=== PATIENT | female | born 1965 | race African-American/Black ===

== ENCOUNTER 2020-11-19 10:55 | Observation (INO) ==
[2020-11-19] MEDS ORDERED: ONDANSETRON 4 MG/2 ML VIAL IV STA (11:38)
[2020-11-19] MEDS ORDERED: MORPHINE 4 MG/1 ML VIAL IV STA (11:38)
[2020-11-19] MEDS ORDERED: NITROGLYCERIN 2% OINT 1 INCH/GM PACK TOP STA (11:38)
[2020-11-19] MEDS ORDERED: ASPIRIN CHEW 81 MG TABLET PO STA (11:38)
[2020-11-19] MEDS ORDERED: ENOXAPARIN 100 MG/ML SYRINGE SUBCUT STA (11:39)
[2020-11-19 11:42] LABS: Basophils % 0.1 % (0.0-0.8); Eosinophils # 0.1 10*3/uL (0.0-0.87); Eosinophils % 1.1 % (0.00-10.9); Hematocrit 39.9 VOL% (35.7-47.0); Hemoglobin 12.1 GM/DL (12.0-16.0); Immature Granulocytes Absolute 0.15 #; Lymphocytes # 2.1 10*3/uL (1.4-4.0); Lymphocytes % 28.2 % (21.3-54.2); Mean Corpuscular HGB Conc 30.3 GM/DL (32-36); Mean Corpuscular Volume 95.9 FL (87-102); Mean Platelet Volume 9.3 FL (9.6-12.0); Monocytes % 8.7 % (1.7-12.7); NRBC # 0.04 10*3/uL; Neutrophils % 59.9 % (38.7-73.9); Platelet Count 263 T/CUMM (130-400); Red Blood Count 4.16 MC/CUMM (3.8-5.5); Red Cell Distribution Width 14.4 % (9.3-17.3); White Blood Count 7.6 T/CUMM (4-12)
[2020-11-19 11:59] LABS: Alanine Aminotransferase 11 U/L (13-56); Albumin 3.3 G/DL (3.4-5.0); Alkaline Phosphatase 108 U/L (45-117); Aspartate Amino Transferase 5 U/L (0-37); Bilirubin,Total < 0.39 MG/DL (0.2-1.0); Blood Urea Nitrogen 13 MG/DL (7-18); Calcium 8.6 MG/DL (8.5-10.1); Carbon Dioxide 31 MMOL/L (21-32); Estimated Glom Filtration Rate 105 ML/MIN; Glucose 107 MG/DL (74-106); Osmolality,Calculated 276.5 MOS/KG (273-304); Potassium 4.6 MMOL/L (3.5-5.1); Sodium 139 MMOL/L (136-145); Total Protein 7.6 G/DL (6.4-8.2)
[2020-11-19 12:05] LABS: Eosinophils 3 % (0-10); Lymphocytes 32 % (20-55); Metamyelocytes 1 %; Segmented Neutrophils 58 % (50-85); Total Cells Counted 100
[2020-11-19 12:06] LABS: Atypical Lymphocytes Few; Hypochromasia Slight; Reactive Lymphocytes Slight
[2020-11-19 12:07] LABS: Platelet Estimate Normal; Polychromasia Slight
[2020-11-19] MEDS ORDERED: DEXTROSE 50% 25 GM/50 ML VIAL IV PRN (13:08)
[2020-11-19] MEDS ORDERED: GLUCAGON 1 MG VIAL IM PRN (13:08)
[2020-11-19] MEDS ORDERED: ACETAMINOPHEN 325 MG TABLET PO PRN (13:08)
[2020-11-19] MEDS ORDERED: ASPIRIN EC 325 MG TABLET PO SCH (13:30)
[2020-11-19] MEDS ORDERED: ENOXAPARIN 40 MG/0.4 ML SYRINGE SUBCUT SCH (13:30)
[2020-11-19] MEDS ORDERED: amLODIPine 5 MG TABLET PO SCH (13:30)
[2020-11-19] MEDS ORDERED: NITROGLYCERIN SL 0.4 MG TABLET SL PRN (14:22)
[2020-11-19] MEDS ORDERED: AZITHROMYCIN 250 MG TABLET PO ONE (15:12)
[2020-11-19] MEDS ORDERED: KETOROLAC 30 MG/1 ML VIAL IV ONE (15:12)
[2020-11-19] MEDS: PANTOPRAZOLE 40 MG TABLET PO SCH (16:00)
[2020-11-19] MEDS: BISOPROLOL 5 MG TABLET PO SCH (16:06)
[2020-11-19] MEDS: methylPREDNISolone SOD SUC 125 MG/2 ML VIAL IV SCH ×2 (16:09→22:42)
[2020-11-19] MEDS: NICOTINE 21 MG/24 HR PATCH TRANSDERM SCH (18:48)
[2020-11-19] MEDS: ALBUTEROL/IPRATROPIUM 3 ML NEB RESP TX SCH (19:35)
[2020-11-19 20:34] LABS: ABG Base Excess 1.8 MMOL/L (-2.5-2.5); ABG HCO3 25.8 MMOL/L (20-26); ABG PCO2 57.3 MM HG (35-48); ABG PH 7.318 (7.35-7.45); ABG PO2 63.1 MM HG (80-95); ABG TCO2 26.2 MMOL/L (23-27); Allen Test Positive
[2020-11-19 20:35] LABS: ABG Oxygen Saturation 90.9 % (95-100)
[2020-11-19 20:38] LABS: Basophils % 0.2 % (0.0-0.8); Eosinophils % 0.1 % (0.00-10.9); Hematocrit 40.5 VOL% (35.7-47.0); Hemoglobin 12.3 GM/DL (12.0-16.0); Immature Granulocytes Absolute 0.21 #; Lymphocytes # 1.5 10*3/uL (1.4-4.0); Lymphocytes % 14.1 % (21.3-54.2); Mean Corpuscular HGB Conc 30.4 GM/DL (32-36); Mean Corpuscular Volume 96.7 FL (87-102); Mean Platelet Volume 9.1 FL (9.6-12.0); NRBC # 0.03 10*3/uL; Neutrophils % 81.6 % (38.7-73.9); Platelet Count 265 T/CUMM (130-400); Red Blood Count 4.19 MC/CUMM (3.8-5.5); Red Cell Distribution Width 14.6 % (9.3-17.3); White Blood Count 10.3 T/CUMM (4-12)
[2020-11-19] MEDS ORDERED: carvediloL 6.25 MG TABLET PO SCH (21:00)
[2020-11-19] MEDS: GABAPENTIN 100 MG CAPSULE PO SCH (21:04)
[2020-11-19] MEDS: ROSUVASTATIN 20 MG TABLET PO SCH (21:04)
[2020-11-19 21:07] LABS: Eosinophils 1 % (0-10); Lymphocytes 18 % (20-55); Nucleated Red Blood Cells 1 (0-5); Segmented Neutrophils 80 % (50-85); Total Cells Counted 100
[2020-11-19 21:09] LABS: Hypochromasia 1+; Microcytosis 1+; Platelet Estimate Increased; Polychromasia Slight
[2020-11-20] MEDS ORDERED: ALBUTEROL/IPRATROPIUM 3 ML NEB RESP TX SCH (01:00)
[2020-11-20] MEDS: ALBUTEROL/IPRATROPIUM 3 ML NEB RESP TX SCH ×4 (01:30→19:22)
[2020-11-20] MEDS ORDERED: FUROSEMIDE 40 MG/4 ML VIAL IV ONE (05:39)
[2020-11-20 06:22] LABS: Alanine Aminotransferase 12 U/L (13-56); Albumin 2.9 G/DL (3.4-5.0); Alkaline Phosphatase 108 U/L (45-117); Aspartate Amino Transferase 6 U/L (0-37); Bilirubin,Total < 0.39 MG/DL (0.2-1.0); Blood Urea Nitrogen 18 MG/DL (7-18); Calcium 8.4 MG/DL (8.5-10.1); Carbon Dioxide 29 MMOL/L (21-32); Estimated Glom Filtration Rate 105 ML/MIN; Glucose 175 MG/DL (74-106); HDL Cholesterol 39 MG/DL (40-60); Osmolality,Calculated 284.4 MOS/KG (273-304); Potassium 5.3 MMOL/L (3.5-5.1); Risk Ratio 4.26; Sodium 140 MMOL/L (136-145); Thyroid Stimulating Hormone 0.224 uIU/ml (0.358-3.74); Total Protein 7.3 G/DL (6.4-8.2); Triglycerides 120 MG/DL (2-150)
[2020-11-20] MEDS: methylPREDNISolone SOD SUC 125 MG/2 ML VIAL IV SCH ×2 (06:30→14:44)
[2020-11-20 07:44] LABS: ABG Base Excess 3.2 MMOL/L (-2.5-2.5); ABG HCO3 27.1 MMOL/L (20-26); ABG Oxygen Saturation 92.3 % (95-100); ABG PCO2 57.9 MM HG (35-48); ABG PH 7.333 (7.35-7.45); ABG PO2 68.5 MM HG (80-95); ABG TCO2 27.2 MMOL/L (23-27)
[2020-11-20] MEDS: GABAPENTIN 100 MG CAPSULE PO SCH ×3 (08:59→20:34)
[2020-11-20] MEDS ORDERED: amLODIPine 2.5 MG TABLET PO SCH (09:00)
[2020-11-20] MEDS: PANTOPRAZOLE 40 MG TABLET PO SCH (09:00)
[2020-11-20] MEDS: ASPIRIN EC 81 MG TABLET PO SCH (09:00)
[2020-11-20] MEDS: BISOPROLOL 5 MG TABLET PO SCH (09:00)
[2020-11-20] MEDS: NICOTINE 21 MG/24 HR PATCH TRANSDERM SCH (09:01)
[2020-11-20] MEDS: AZITHROMYCIN 250 MG TABLET PO SCH (09:03)
[2020-11-20] MEDS ORDERED: amLODIPine 2.5 MG TABLET PO ONE (10:49)
[2020-11-20] MEDS ORDERED: DEXTROSE 50% 25 GM/50 ML VIAL IV PRN (11:11)
[2020-11-20] MEDS: ENOXAPARIN 40 MG/0.4 ML SYRINGE SUBCUT SCH (12:14)
[2020-11-20] MEDS: INSULIN LISPRO 100 UNIT/ML SUBCUT SCH ×2 (16:42→22:07)
[2020-11-20] MEDS: ROSUVASTATIN 20 MG TABLET PO SCH (20:34)
[2020-11-21] MEDS: methylPREDNISolone SOD SUC 125 MG/2 ML VIAL IV SCH ×2 (00:22→07:25)
[2020-11-21] MEDS: ALBUTEROL/IPRATROPIUM 3 ML NEB RESP TX SCH ×4 (01:21→19:00)
[2020-11-21] MEDS: INSULIN LISPRO 100 UNIT/ML SUBCUT SCH ×4 (07:30→22:10)
[2020-11-21 08:37] LABS: Basophils % 0.2 % (0.0-0.8); Hematocrit 41.6 VOL% (35.7-47.0); Hemoglobin 12.7 GM/DL (12.0-16.0); Immature Granulocytes Absolute 0.13 #; Lymphocytes # 1.4 10*3/uL (1.4-4.0); Lymphocytes % 11.2 % (21.3-54.2); Mean Corpuscular HGB Conc 30.5 GM/DL (32-36); Mean Platelet Volume 9.4 FL (9.6-12.0); Monocytes % 4.5 % (1.7-12.7); Neutrophils % 83.1 % (38.7-73.9); Platelet Count 280 T/CUMM (130-400); Red Blood Count 4.38 MC/CUMM (3.8-5.5); Red Cell Distribution Width 14.3 % (9.3-17.3); White Blood Count 12.9 T/CUMM (4-12)
[2020-11-21 08:54] LABS: Osmolality,Calculated 283.5 MOS/KG (273-304); Potassium 4.6 MMOL/L (3.5-5.1)
[2020-11-21] MEDS: ASPIRIN EC 81 MG TABLET PO SCH (09:23)
[2020-11-21] MEDS: NICOTINE 21 MG/24 HR PATCH TRANSDERM SCH (09:24)
[2020-11-21] MEDS: BISOPROLOL 5 MG TABLET PO SCH (09:24)
[2020-11-21] MEDS: PANTOPRAZOLE 40 MG TABLET PO SCH (09:24)
[2020-11-21] MEDS: amLODIPine 5 MG TABLET PO SCH (09:24)
[2020-11-21] MEDS: AZITHROMYCIN 250 MG TABLET PO SCH (09:24)
[2020-11-21] MEDS: GABAPENTIN 100 MG CAPSULE PO SCH ×3 (09:24→21:38)
[2020-11-21] MEDS: ENOXAPARIN 40 MG/0.4 ML SYRINGE SUBCUT SCH (12:41)
[2020-11-21] MEDS: methylPREDNISolone SOD SUC 40 MG/1 ML VIAL IV SCH (14:38)
[2020-11-21] MEDS: LORazepam 1 MG TABLET PO PRN ×2 (15:07→22:16)
[2020-11-21] MEDS: ROSUVASTATIN 20 MG TABLET PO SCH (21:38)
[2020-11-21] MEDS: SERTRALINE 100 MG TABLET PO SCH (21:38)
[2020-11-22] MEDS: ALBUTEROL/IPRATROPIUM 3 ML NEB RESP TX SCH ×4 (01:51→20:54)
[2020-11-22] MEDS: methylPREDNISolone SOD SUC 40 MG/1 ML VIAL IV SCH ×2 (03:55→13:10)
[2020-11-22 05:53] LABS: Osmolality,Calculated 284.3 MOS/KG (273-304); Potassium 4.2 MMOL/L (3.5-5.1)
[2020-11-22 08:14] LABS: Basophils % 0.1 % (0.0-0.8); Hematocrit 40.6 VOL% (35.7-47.0); Hemoglobin 12.5 GM/DL (12.0-16.0); Immature Granulocytes % 0.9 %; Immature Granulocytes Absolute 0.11 #; Lymphocytes # 2.4 10*3/uL (1.4-4.0); Lymphocytes % 19.9 % (21.3-54.2); Mean Corpuscular HGB Conc 30.8 GM/DL (32-36); Mean Corpuscular Volume 94.6 FL (87-102); Mean Platelet Volume 9.8 FL (9.6-12.0); Monocytes % 10.4 % (1.7-12.7); Neutrophils % 68.7 % (38.7-73.9); Platelet Count 280 T/CUMM (130-400); Red Blood Count 4.29 MC/CUMM (3.8-5.5); Red Cell Distribution Width 14.3 % (9.3-17.3); White Blood Count 12.1 T/CUMM (4-12)
[2020-11-22] MEDS: INSULIN LISPRO 100 UNIT/ML SUBCUT SCH ×4 (08:22→22:00)
[2020-11-22] MEDS: NICOTINE 21 MG/24 HR PATCH TRANSDERM SCH (08:52)
[2020-11-22] MEDS: BISOPROLOL 5 MG TABLET PO SCH (08:53)
[2020-11-22] MEDS: amLODIPine 5 MG TABLET PO SCH (08:53)
[2020-11-22] MEDS: ASPIRIN EC 81 MG TABLET PO SCH (08:53)
[2020-11-22] MEDS: PANTOPRAZOLE 40 MG TABLET PO SCH (08:53)
[2020-11-22] MEDS: AZITHROMYCIN 250 MG TABLET PO SCH (08:53)
[2020-11-22] MEDS: GABAPENTIN 100 MG CAPSULE PO SCH ×3 (08:53→20:54)
[2020-11-22] MEDS: ENOXAPARIN 40 MG/0.4 ML SYRINGE SUBCUT SCH (12:14)
[2020-11-22] MEDS: LORazepam 1 MG TABLET PO PRN ×2 (13:10→20:53)
[2020-11-22] MEDS: ROSUVASTATIN 20 MG TABLET PO SCH (20:54)
[2020-11-22] MEDS: SERTRALINE 100 MG TABLET PO SCH (20:54)
[2020-11-23] MEDS: methylPREDNISolone SOD SUC 40 MG/1 ML VIAL IV SCH ×2 (01:35→13:49)
[2020-11-23] MEDS: ALBUTEROL/IPRATROPIUM 3 ML NEB RESP TX SCH ×3 (03:16→12:48)
[2020-11-23] MEDS: ASPIRIN EC 81 MG TABLET PO SCH (08:36)
[2020-11-23] MEDS: NICOTINE 21 MG/24 HR PATCH TRANSDERM SCH (08:36)
[2020-11-23] MEDS: GABAPENTIN 100 MG CAPSULE PO SCH (08:37)
[2020-11-23] MEDS: BISOPROLOL 5 MG TABLET PO SCH (08:37)
[2020-11-23] MEDS: AZITHROMYCIN 250 MG TABLET PO SCH (08:37)
[2020-11-23] MEDS: LORazepam 1 MG TABLET PO PRN ×2 (08:37→13:48)
[2020-11-23] MEDS: amLODIPine 5 MG TABLET PO SCH (08:37)
[2020-11-23] MEDS: PANTOPRAZOLE 40 MG TABLET PO SCH (08:37)
[2020-11-23] MEDS: INSULIN LISPRO 100 UNIT/ML SUBCUT SCH ×2 (09:46→13:39)
[2020-11-23 12:49] VITALS: BP 149/71
[2020-11-23] MEDS: ENOXAPARIN 40 MG/0.4 ML SYRINGE SUBCUT SCH ×2 (13:39→13:49)
== END 2020-11-23 14:23 | disposition home or self-care (01) ==
LOC: N.ED 10:55 → N.EDINP 10:55 → SUATTDRO 12:38 → N.EDINP 18:12 → N.TELEN 18:27
PROVIDERS: ADMIT Hospitalist; ATTEND Internal Medicine

== ENCOUNTER 2021-01-17 15:03 | Observation (INO) ==
[2021-01-17] MEDS ORDERED: ALBUTEROL/IPRATROPIUM 3 ML NEB RESP TX PRN (17:39)
[2021-01-17] MEDS ORDERED: NICOTINE 21 MG/24 HR PATCH TRANSDERM PRN (17:39)
[2021-01-17] MEDS ORDERED: hydrALAZINE 20 MG/1 ML VIAL IV PRN (17:39)
[2021-01-17] MEDS ORDERED: ACETAMINOPHEN 325 MG TABLET PO PRN (17:39)
[2021-01-17] MEDS ORDERED: DEXTROSE 50% 25 GM/50 ML VIAL IV PRN (17:39)
[2021-01-17] MEDS ORDERED: ONDANSETRON 4 MG/2 ML VIAL IV PRN (17:39)
[2021-01-17] MEDS ORDERED: GLUCAGON 1 MG VIAL IM PRN (17:39)
[2021-01-17] MEDS ORDERED: DOCUSATE SODIUM 100 MG CAPSULE PO PRN (17:39)
[2021-01-17] MEDS ORDERED: ENOXAPARIN 40 MG/0.4 ML SYRINGE SUBCUT SCH (18:00)
[2021-01-17] MEDS: ALBUTEROL 2.5 MG/3 ML NEB RESP TX SCH (20:52)
[2021-01-17] MEDS ORDERED: SIMVASTATIN 20 MG TABLET PO SCH (21:00)
[2021-01-17] MEDS ORDERED: DOXYCYCLINE HYCLATE 100 MG CAPSULE PO SCH (21:00)
[2021-01-17] MEDS: methylPREDNISolone SOD SUC 40 MG/1 ML VIAL IV SCH (21:45)
[2021-01-17] MEDS: BUDESONIDE/FORMOTEROL 160-4.5 INHALER 6 GM INH SCH (21:45)
[2021-01-17] MEDS: carvediloL 3.125 MG TABLET PO SCH (21:46)
[2021-01-17] MEDS: guaiFENesin/DM ER 600-30 MG TABLET PO SCH (21:47)
[2021-01-17] MEDS: INSULIN REGULAR 100 UNIT/ML SUBCUT SCH (21:47)
[2021-01-17 22:33] LABS: Bacteria,Urine Occasional /HPF (Few); Bilirubin,Urine Negative (Negative); Blood, Urine Negative (Negative); Glucose,Urine (UA) Negative (Negative); Ketones,Urine Negative (Negative); Mucus,Urine Occasional /LPF (Occasional); Nitrite,Urine Negative (Negative); Protein,Urine 30 MG/DL; RBC,Urine 1 /HPF (0-4); Squamous Epithelial Cell,Urine Occasional /HPF (0-10); Urine Appearance CLEAR (Clear); Urine Color Yellow (Yellow); Urine Urobilinogen < 2.0 EU/DL (0.2-1.0)
[2021-01-18] MEDS: ALBUTEROL 2.5 MG/3 ML NEB RESP TX SCH ×2 (01:56→07:26)
[2021-01-18] MEDS: methylPREDNISolone SOD SUC 40 MG/1 ML VIAL IV SCH ×2 (03:34→09:36)
[2021-01-18 06:58] LABS: Albumin 3.1 G/DL (3.4-5.0); Bilirubin,Total 0.4 MG/DL (0.20-1.00); Calcium 8.9 MG/DL (8.5-10.1); Osmolality,Calculated 290.1 MOS/KG (273-304); Potassium 4.7 MMOL/L (3.5-5.1); Thyroid Stimulating Hormone 0.094 uIU/ml (0.358-3.74); Total Protein 7.1 G/DL (6.4-8.2)
[2021-01-18 07:55] LABS: Basophils % 0.3 % (0.0-0.8); Hematocrit 37.3 VOL% (35.7-47.0); Hemoglobin 11.6 GM/DL (12.0-16.0); Immature Granulocytes % 1.9 %; Immature Granulocytes Absolute 0.13 #; Lymphocytes # 1.1 10*3/uL (1.4-4.0); Lymphocytes % 16.6 % (21.3-54.2); Mean Corpuscular HGB Conc 31.1 GM/DL (32-36); Mean Corpuscular Volume 98.2 FL (87-102); Monocytes % 2.5 % (1.7-12.7); Neutrophils % 78.7 % (38.7-73.9); Platelet Count 223 T/CUMM (130-400); Red Cell Distribution Width 14.4 % (9.3-17.3); White Blood Count 6.9 T/CUMM (4-12)
[2021-01-18] MEDS: INSULIN REGULAR 100 UNIT/ML SUBCUT SCH ×2 (08:11→11:34)
[2021-01-18 08:24] VITALS: BP 132/37
[2021-01-18] MEDS ORDERED: LEVOFLOXACIN INJ 500 MG/100 ML PREMIX IV SCH (08:30)
[2021-01-18] MEDS: guaiFENesin/DM ER 600-30 MG TABLET PO SCH (08:49)
[2021-01-18] MEDS: carvediloL 3.125 MG TABLET PO SCH (08:50)
[2021-01-18] MEDS: BUDESONIDE/FORMOTEROL 160-4.5 INHALER 6 GM INH SCH (08:52)
[2021-01-18] MEDS ORDERED: PANTOPRAZOLE 40 MG TABLET PO SCH (09:00)
[2021-01-18] MEDS ORDERED: amLODIPine 5 MG TABLET PO SCH (09:00)
[2021-01-18] MEDS ORDERED: LOSARTAN 50 MG TABLET PO SCH (09:00)
== END 2021-01-18 11:55 | disposition home or self-care (01) ==
LOC: N.TELES → SUATTDRO 16:32
PROVIDERS: ADMIT Internal Medicine; ATTEND Internal Medicine

== ENCOUNTER 2022-03-06 12:05 | Observation (INO) ==
[2022-03-06 12:30] LABS: Basophils % 0.4 % (0.0-0.8); Eosinophils # 0.1 10*3/uL (0.0-0.87); Eosinophils % 1.8 % (0.00-10.9); Hematocrit 34.5 VOL% (35.7-47.0); Hemoglobin 10.6 GM/DL (12.0-16.0); Immature Granulocytes % 1.6 %; Immature Granulocytes Absolute 0.09 #; Lymphocytes % 36.2 % (21.3-54.2); Mean Corpuscular HGB Conc 30.7 GM/DL (32-36); Mean Corpuscular Volume 95.6 FL (87-102); Mean Platelet Volume 8.8 FL (9.6-12.0); Monocytes # 0.6 10*3/uL (0.11-0.8); Monocytes % 10.3 % (1.7-12.7); Neutrophils % 49.7 % (38.7-73.9); Platelet Count 183 T/CUMM (130-400); Red Blood Count 3.61 MC/CUMM (3.8-5.5); Red Cell Distribution Width 13.5 % (9.3-17.3); White Blood Count 5.5 T/CUMM (4-12)
[2022-03-06 12:54] LABS: Alanine Aminotransferase 12 U/L (13-56); Albumin 3.1 G/DL (3.4-5.0); Alkaline Phosphatase 95 U/L (45-117); Aspartate Amino Transferase 11 U/L (0-37); Bilirubin,Total < 0.39 MG/DL (0.20-1.00); Blood Urea Nitrogen 20 MG/DL (7-18); Calcium 8.7 MG/DL (8.5-10.1); Carbon Dioxide 24 MMOL/L (21-32); Chloride 112 MMOL/L (98-107); Glucose 119 MG/DL (74-106); Osmolality,Calculated 282.4 MOS/KG (273-304); Sodium 140 MMOL/L (136-145); Total Protein 6.6 G/DL (6.4-8.2)
[2022-03-06] MEDS ORDERED: NITROGLYCERIN SL 0.4 MG TABLET SL PRN (13:51)
[2022-03-06] MEDS ORDERED: ASPIRIN 325 MG TABLET PO STA (13:51)
[2022-03-06] MEDS ORDERED: FUROSEMIDE 40 MG/4 ML VIAL IV STA (13:52)
[2022-03-06] MEDS ORDERED: DIAZEPAM 10 MG/2 ML SYRINGE IV STA (14:01)
[2022-03-06 14:13] LABS: INR 0.9; Partial Thromboplastin Time 29.2 SECS (23.7-32.9)
[2022-03-06] MEDS ORDERED: traZODone 50 MG TABLET PO PRN (17:45)
[2022-03-06] MEDS ORDERED: NICOTINE 21 MG/24 HR PATCH TRANSDERM PRN (17:45)
[2022-03-06] MEDS ORDERED: GLUCAGON 1 MG VIAL IM PRN (17:45)
[2022-03-06] MEDS ORDERED: ONDANSETRON 4 MG/2 ML VIAL IV PRN (17:45)
[2022-03-06] MEDS ORDERED: ACETAMINOPHEN 325 MG TABLET PO PRN (17:45)
[2022-03-06] MEDS ORDERED: DEXTROSE 10% 250 ML BAG IV PRN (17:45)
[2022-03-06] MEDS ORDERED: DOCUSATE SODIUM 100 MG CAPSULE PO PRN (17:45)
[2022-03-06] MEDS ORDERED: hydrALAZINE 20 MG/1 ML VIAL IV PRN (17:45)
[2022-03-06] MEDS ORDERED: ASPIRIN EC 325 MG TABLET PO STA (17:50)
[2022-03-06] MEDS ORDERED: ENOXAPARIN 40 MG/0.4 ML SYRINGE SUBCUT SCH (21:00)
[2022-03-07] MEDS: ALBUTEROL/IPRATROPIUM 3 ML NEB RESP TX SCH ×2 (00:30→07:27)
[2022-03-07 05:08] LABS: Basophils % 0.4 % (0.0-0.8); Eosinophils # 0.1 10*3/uL (0.0-0.87); Eosinophils % 1.8 % (0.00-10.9); Hematocrit 36.8 VOL% (35.7-47.0); Hemoglobin 11.2 GM/DL (12.0-16.0); Immature Granulocytes % 1.8 %; Immature Granulocytes Absolute 0.09 #; Lymphocytes # 1.7 10*3/uL (1.4-4.0); Mean Corpuscular HGB Conc 30.4 GM/DL (32-36); Mean Corpuscular Volume 95.3 FL (87-102); Monocytes # 0.5 10*3/uL (0.11-0.8); Monocytes % 10.5 % (1.7-12.7); Neutrophils % 51.5 % (38.7-73.9); Platelet Count 200 T/CUMM (130-400); Red Blood Count 3.86 MC/CUMM (3.8-5.5); Red Cell Distribution Width 13.6 % (9.3-17.3); White Blood Count 5.1 T/CUMM (4-12)
[2022-03-07 05:26] LABS: Osmolality,Calculated 284.1 MOS/KG (273-304)
[2022-03-07 05:27] LABS: Risk Ratio 3.68; VLDL Cholesterol 37.8 MG/DL
[2022-03-07] MEDS ORDERED: FUROSEMIDE 40 MG/4 ML VIAL IV SCH (09:00)
[2022-03-07] MEDS ORDERED: ASPIRIN EC 325 MG TABLET PO SCH (09:00)
[2022-03-07] MEDS ORDERED: KETOROLAC 30 MG/1 ML VIAL IV ONE (09:33)
[2022-03-07] MEDS ORDERED: AZITHROMYCIN 250 MG TABLET PO ONE (10:17)
[2022-03-07] MEDS ORDERED: methylPREDNISolone SOD SUC 125 MG/2 ML VIAL IV ONE (10:18)
[2022-03-07 13:35] VITALS: BP 145/76
[2022-03-08] MEDS ORDERED: AZITHROMYCIN 250 MG TABLET PO SCH (09:00)
== END 2022-03-07 12:45 | disposition home or self-care (01) ==
LOC: N.EDINP 12:05 → N.ED 12:05 → SUATTDRO 17:42 → N.EDINP 20:42 → N.TELES 21:32
PROVIDERS: ADMIT Internal Medicine Geriatric Medicine; ATTEND Internal Medicine